=== PATIENT | female | born 1970 | race Caucasian/White ===

== ENCOUNTER 2016-11-05 09:18 | Day surgery (SDC) | payer OTHER ==
[2016-11-03 14:34] LABS: ABSOLUTE EOSINOPHILS # (AUTO) 0.2 10^3/uL (0.0-0.6); ABSOLUTE LYMPHOCYTES (AUTO) 2.1 10^3/uL (0.5-4.7); ABSOLUTE MONOCYTES (AUTO) 0.5 10^3/uL (0.1-1.4); BASOPHILS % (AUTO) 0.8 % (0-2); EOSINOPHILS % (AUTO) 4.2 % (0-6); HEMATOCRIT 37.6 % (36.0-47.0); HEMOGLOBIN 12.2 g/dL (12.0-15.5); LYMPHOCYTES % (AUTO) 35.9 % (13-45); MEAN CORPUSCULAR HEMOGLOBIN 31.8 pg (27.0-33.4); MEAN CORPUSCULAR HGB CONC 32.5 g/dL (32.0-36.0); MEAN CORPUSCULAR VOLUME 98 fl (80-97); MONOCYTES % (AUTO) 8.2 % (3-13); RED BLOOD COUNT 3.85 10^6/uL (3.72-5.28); SEGMENTED NEUTROPHILS % (AUTO) 50.9 % (42-78); WHITE BLOOD COUNT 5.9 10^3/uL (4.0-10.5)
[2016-11-03 15:03] LABS: APPEARANCE,URINE CLOUDY; BILIRUBIN,URINE NEGATIVE (NEGATIVE); GLUCOSE, URINE NEGATIVE (NEGATIVE); KETONES,URINE NEGATIVE (NEGATIVE); LEUKOCYTE ESTERASE,URINE NEGATIVE (NEGATIVE); NITRITE,URINE NEGATIVE (NEGATIVE); PROTEIN,URINE NEGATIVE (NEGATIVE); URINE SPECIFIC GRAVITY 1.013; UROBILINOGEN,URINE NEGATIVE mg/dL (<2.0)
[~2016-11-05 09:18] MED LIST: CEFAZOLIN 1 GM/D5W RTU 1 GM/50 ML RTUPB IV PRN; CEFAZOLIN SODIUM 1 GM in DEXTROSE 5%-WATER 50 ML IV PRN; RINGERS SOLUTION,LACTATED 1,000 ML IV PRN
[2016-11-05] MEDS ORDERED: PROPOFOL INJ 200 MG/20 ML VIAL IV ONE (10:41)
[2016-11-05] MEDS ORDERED: FENTANYL CITRATE INJ/PF 100 MCG/2 ML AMPUL ONE ×2 (10:41)
[2016-11-05] MEDS ORDERED: MIDAZOLAM 2 MG/2 ML INJ ONE (10:41)
[2016-11-05] MEDS ORDERED: LIDOCAINE 2% INJ (20 MG/ML) 20 ML MDV ONE (10:50)
[2016-11-05] MEDS ORDERED: BUPIVACAINE HCL 0.5 % INJ/PF 30 ML SDV ONE (10:50)
[2016-11-05] MEDS ORDERED: CEFAZOLIN 1 GM/D5W RTU 0 GM/0 ML RTUPB IV ONE (12:57)
--- NOTE | 2016-11-05 13:58 | [facility] OPERATIVE REPORT E ---
[facility] Report NAME: SHIVAM ONEAL AGE: 46Y DATE OF SURGERY: 11/05/2016 ROOM: PREOPERATIVE DIAGNOSIS: Hallux abductovalgus deformity right foot. POSTOPERATIVE DIAGNOSIS: Hallux abductovalgus deformity right foot. PROCEDURES PERFORMED: 1. Bicorrectional osteotomy first metatarsal head with external fixation, right foot. 2. Capsulorrhaphy first metatarsophalangeal joint, right foot. SURGEON: BISHOP ROBB D.P.M. INTRAOPERATIVE FINDINGS: Indicates severe dislocation of the first metatarsophalangeal joint with lateral deviation of the articular facet of the head of the first metatarsal. There were no arthritic changes in the joint and some hypertrophy of the medial eminence of the first metatarsal were present as well. Intraoperative findings were confirmed clinically and radiographically. PROCEDURE: With the patient laying in the dorsal recumbent position, right foot and leg were prepped and draped in the usual standard sterile orthopedic manner after the local anesthesia was administered, which was a total ankle block. After the anesthetic effect was accomplished, the right leg was elevated for approximately 2 minutes of time and the right ankle pneumatic tourniquet was inflated up to 250 mmHg after the blood was exsanguinated from the right foot. The right leg was brought to the level of the table. Attention was directed right over the first metatarsophalangeal joint. A curvilinear incision was placed right over the joint. The initial incision was deepened. The superficial and deep subcutaneous tissues were dissected via blunt and sharp dissection. This dissection was carried until the capsular structures of the first metatarsophalangeal joint were brought into the surgical field. At this point, L inverted capsulotomy was performed. The long arm of the L capsulotomy was placed medial and adjacent to the extensor hallucis longus. The short arm was placed right over the joint and then ran in medial inferior direction. All bleeders were ligated by this time and all vital structures were protected from surgical trauma. The capsule structures were dissected off bone and the head of the first metatarsal was brought into the surgical field. The hypertrophic portion of the head of the first metatarsal was resected and the head was remodeled to a more normal anatomical configuration. At this time, the osteotomy was performed. This was a 2-step osteotomy and performed in 2 different planes. The first osteotomy was in the transverse plane. It was from medial to lateral direction. It was angulated about 45 degrees to the long axis of the first metatarsal and it was executed through the lower half of the head of the first metatarsal. The second osteotomy was executed from dorsal to plantar direction. It was performed in the sagittal plane and extended only to the transverse plane osteotomy. Once this was completed, the pie wedge of bone was removed and the osteotomy was collapsed. The articular facet of the head of first metatarsal acquired normal alignment. After that, the head was shifted laterally in order to reduce the IM angle between the first and second metatarsal. With the head in new position, it was externally fixated to 0.062 K-wire. The wire ran from medial proximal to lateral distal direction, crossed the osteotomy, and impacted it. Precautions were taken for the wire not to be protruding into the surgical field. At this point, the wire was cut short so it could be incorporated into the surgical area. Next, intraoperative x-rays were obtained to assure the perfect alignment of the wire and the fact that the wire was not protruding into the joint. Next, the capsulorrhaphy was performed to remove the redundant capsule created after the correction of the deformity and the capsule structures were closed with 2-0 Vicryl using continuous interlock stitch. The subcutaneous tissues from deep to superficial were closed with 3-0 Vicryl and the skin edges were repositioned and anchored down with 4-0 nylon using continuous interlock stitch. Betadine compression dressing was applied around the surgical area followed with KP bandage and a surgical shoe. This patient tolerated all procedures well and left the operating room with stable vital signs and in good condition. The patient was taken to the recovery room alert, conscious, and oriented. There are no permanent disabilities anticipated at this time. DICTATING PHYSICIAN: BISHOP ROBB D.P.M. [id number] PHY#: [id number] ID: [id number] JOB#: [id number] ACCT: [id number] cc:BISHOP ROBB D.P.M. > MTDD
== END 2016-11-05 13:35 | disposition home or self-care (01) ==
LOC: SC 09:18
PROVIDERS: ATTEND Podiatrist Foot & Ankle Surgery
PROC: 0SQM0ZZ Repair Right Metatarsal-Phalangeal Joint, Open Approach (ICD-10-PCS; 2016-11-05)
PROC: 0QBN0ZZ Excision of Right Metatarsal, Open Approach (ICD-10-PCS; principal; 2016-11-05 10:30)
DX: M20.11 Hallux valgus (acquired), right foot (principal); J30.2 Other seasonal allergic rhinitis; Z91.040 Latex allergy status; Z87.891 Personal history of nicotine dependence; Z79.899 Other long term (current) drug therapy
CPT/HCPCS: 36415; 85025; 81001; 73620; 28299; 28899; C1713; J2250; J3490; J0690; J3010; J2704; 01480

== ENCOUNTER → 2018-11-03 | Outpatient (CLI) | payer OTHER ==
--- NOTE | 2018-11-03 08:45 | WOMENS IMAGING REPORT ---
EXAM DESCRIPTION: U/S ABDOMEN LIMITED COMPLETED DATE/TIME: 11/03/2018 8:25 am REASON FOR STUDY: R10.11 RIGHT UPPER QUADRANT PAIN R10.11 RIGHT UPPER QUADRANT PAIN R11.0 NAUSEA COMPARISON: None. TECHNIQUE: Dynamic and static grayscale images acquired of the abdomen and recorded on PACS. Additio nal selected color Doppler and spectral images recorded. LIMITATIONS: None. FINDINGS: PANCREAS: Normal. LIVER: The liver demonstrates normal echogenicity. The liver is normal in size measuring 12.9 cm. LIVER VASCULATURE: Normal directional flow of the main portal vein and hepatic veins. GALLBLADDER: The gallbladder is normal. Normal gallbladder wall thicknessmeasuring 1.8 mm. ULTRASOUND-DETECTED ROSS'S SIGN: Negative. INTRAHEPATIC DUCTS AND COMMON DUCT: CBD is normal measuring 2.2 mm. Intrahepatic ducts normal calibe r. No filling defects. INFERIOR VENA CAVA: Normal flow. AORTA: The the proximal abdominal aorta measures 1.6 x 2.1 cm. The mid abdominal aorta measures 1.2 x 1.3 cm. The distal abdominal aorta nonvisualized. RIGHT KIDNEY: The right kidney is normal measuring 10.4 x 3.8 x 4.7 cm. No hydronephrosis. PERITONEAL AND RIGHT PLEURAL SPACE: No ascites or effusions. OTHER: No other significant findings. IMPRESSION: NORMAL RIGHT UPPER QUADRANT ULTRASOUND. TECHNICAL DOCUMENTATION: JOB ID: [id number] [employer]- All Rights Reserved Reading location - IP/workstation name: [email or web address]
== END ==
LOC: WI 07:50
PROVIDERS: ATTEND Internal Medicine Gastroenterology
DX: R10.11 Right upper quadrant pain (principal); R11.0 Nausea
CPT/HCPCS: 76705